=== PATIENT | male | born 1950 ===

== ENCOUNTER 2017-06-21 13:59 | Day surgery (SDC) | payer MEDICAID, MEDICARE, OTHER ==
[2017-06-21 16:17] VITALS: BMI 28.3
[2017-06-21] MEDS ORDERED: Midazolam 2 MG/2 ML VIAL ONE (17:29)
[2017-06-21] MEDS ORDERED: Iodixanol 320 MG/ML 100 ML BOTTLE IV ONE ×2 (17:33→18:05)
--- NOTE | 2017-06-29 18:24 | CATH ---
APPROVED REPORT Procedure(s) performed: Coronary Arteriogram Left Heart Catheterization HISTORY : The patient is a 66 year-old MALE with a history of . INDICATION The indication(s) include : chest pain, abnormal ECG. CASE TECHNIQUE The patient was brought electively to the Cardiac Catheterization Laboratory in a fasting state and was prepped and draped in a sterile manner. The right femoral groin was infiltrated with 1% Lidocaine subcutaneous anesthesia. A sheath was inserted into the right femoral artery without difficulty. Coronary angiography was performed using coronary diagnostic catheters. The left coronary system was accessed and visualized with a Diagnostic catheter. The right coronary system was accessed and visualized with a Diagnostic catheter. The left ventricle was accessed and visualized with a Diagnostic catheter. Left ventricular/Aortic Valve gradient assessed on pullback. Left ventriculogram was performed in BO projection. Pre-demployment femoral angiogram was performed . Closure device was deployed with a 6 Fr Angioseal without any complications. The patient tolerated the procedure well and there were no complications associated with the procedure. The circumflex artery is a large size vessel with stenosis. There is a 85% stenosis in the mid segment. The first obtuse marginal branch is a small size vessel with stenosis. There is a 95% stenosis in the ostial segment. The right coronary artery is a small size vessel with stenosis. There is a 60% stenosis in the mid segment. The right posterior descending artery is a small size vessel with stenosis. There is a 90% stenosis in the distal segment. The right posterolateral branch is a small size vessel with intimal irregularities. Left Ventricle The left ventricle is NML in size with NML contractility. The left ventricular ejection fraction is estimated to be 60%. There was no gradient across the aortic valve upon pullback. Conclusion Double Vessel CAD Recommendations Smoking Cessation Daily ASA with Plavix for at least one year Aggressive Medical Therapy Weight Loss Reduction Program TRANSFER FOR PCI
[2017-06-30 14:54] VITALS: RESP 19; O2SAT 100
== END 2017-06-21 21:00 | disposition home or self-care (01) ==
LOC: C.CATHLAB 13:59 → C.CARD 13:59
PROVIDERS: ATTEND Internal Medicine Cardiovascular Disease
DX: I25.10 Atherosclerotic heart disease of native coronary artery without angina pectoris (principal); F17.210 Nicotine dependence, cigarettes, uncomplicated; I77.1 Stricture of artery
CPT/HCPCS: 82948; 93452; C1758; C1760; C1769; C1887; J1644; J2250; J3010; Q9967